=== PATIENT | female | born 1935 | race Caucasian/White ===

== ENCOUNTER → 2021-05-29 | Outpatient (REF) | payer MEDICARE, OTHER ==
[~2021-05-29] MED LIST: ASPI1TAB PO; CALCTAB7 PO; CELE1CAP4 PO; COLA50CA3 PO; DIOVAN PO; GABAPOW41 PO; GLUCTAB6 PO; HYDR12.55 PO; LIDO1DIS2 TD; LIPITOR PO; LYSINE PO; META800T82 PO; METAMUCIL PO; MULTLIQ7 PO; PANTOPRAZOLE PO; TYLE325T5 PO; ULTR50TA PO; VITAMIN E PO; [UNRECOGNIZED DRUG - OTHER] PO
== END ==
LOC: M SFHCDERM 17:20
PROVIDERS: ATTEND Nurse Practitioner Family
DX: L82.1 Other seborrheic keratosis (principal)